=== PATIENT | female | born 2000 | race Caucasian/White ===

== ENCOUNTER 2019-05-05 05:20 | Emergency (ER) | payer SELFPAY ==
[2019-05-05 06:40] LABS: Bilirubin Negative (Negative); Blood, Urine Negative (Negative); Clarity Clear (Clear); Glucose, Urine (Dipstick) Normal (Negative); Leukocyte 75 Leu/uL (Negative); Mucous/LPF 2+ LPF (<2+); Nitrite Negative (Negative); Protein, Urine (Dipstick) Negative (Neg-Trace); Urobilinogen Normal mg/dL (Less than 2)
[2019-05-05 06:41] LABS: Bacteria/HPF 1+ HPF (None Seen); Pregnancy Test - Urine (BHCG) Negative (Negative); Pregu Control Background? CLEAR/WHITE (CLR/WHITE); Pregu Control Bar Appear? YES (CONTROL BAR); Specific Gravity 1.025 (1.002-1.036)
[2019-05-05] MEDS ORDERED: cefTRIAXone\\ROCEPHIN 250 MG VIAL ONE (07:47)
[2019-05-05] MEDS ORDERED: Azithromycin 250 MG TAB ONE (07:47)
[2019-05-05] MEDS ORDERED: Lidocaine 1% PF 5 ML VIAL ONE (07:49)
[2019-05-05 22:53] LABS: Chlamydia by PCR DETECTED (NotDetected); GC by PCR Not Detected (NotDetected)
== END 2019-05-05 08:00 | disposition home or self-care (01) ==
LOC: ERS 05:20
DX: N39.0 Urinary tract infection, site not specified (principal); F17.210 Nicotine dependence, cigarettes, uncomplicated
CPT/HCPCS: 81003; 81015; 81025; 87491; 87591; 96372; 99284; J0696; J2001